=== PATIENT | male | born 1945 | race Caucasian/White ===

== ENCOUNTER 2021-10-02 09:16 | Day surgery (SDC) | payer MEDICARE ==
[2021-10-02] VITALS (12 sets, daily range): BP systolic 113–135; BP diastolic 39–87
[~2021-10-02] VITALS: Ht 182.9 cm; Wt 148.1 kg
[~2021-10-02 09:16] MED LIST: ASPI-1053 PO; CARV-50 PO; HYDR-4353 PO; IPRA4AER IH; LOSA50TA3 PO; METF-900 PO; MULT-1085 PO; SAXA1TBM PO; SIMV-42 PO; VITAMIN D PO
[2021-10-02] MEDS ORDERED: diphenhydrAMINE 25mg capsule PO PRN (10:25)
[2021-10-02] MEDS ORDERED: normal saline 1,000 ML IV SCH (10:25)
[2021-10-02] MEDS ORDERED: iohexol 350MG/ML 100ml bottle IV ONE (11:34)
[2021-10-02] MEDS ORDERED: heparin 1,000unit/ml 10ml vial 10 ML ONE (11:34)
[2021-10-02] MEDS ORDERED: midazolam 1 mg/ML 2ml injection ONE (11:34)
[2021-10-02] MEDS ORDERED: iohexol 350 MG/ML 50ML vial IV ONE (11:34)
[2021-10-02] MEDS ORDERED: LIDOcaine 1% (10mg/ml)w/preservative injection 20ml MDV ONE (11:34)
[2021-10-02] MEDS ORDERED: fentaNYL/PF 50MCG/1 ML 2ML syringe ONE (11:34)
[2021-10-02 11:44] LABS: BASOPHILS % (AUTO) 0.8 % (0-1); EOSINOPHILS # (AUTO) 0.2 X10'3 (0-0.9); EOSINOPHILS % (AUTO) 3.4 % (0-6); HEMATOCRIT 47.1 % (42.0-52.0); HEMOGLOBIN 15.4 g/dl (14.0-17.9); LYMPHOCYTES # (AUTO) 0.6 X10'3 (1.1-4.8); LYMPHOCYTES % (AUTO) 10.5 % (21-51); MEAN CORPUSCULAR HGB CONC 32.7 g/dL (33.0-36.5); MEAN CORPUSCULAR VOLUME 97.8 FL (78-98); MEAN PLATELET VOLUME 8.7 FL (7.4-10.4); MONOCYTES # (AUTO) 0.4 X10'3 (0-0.9); NEUTROPHILS # (AUTO) 4.4 X10'3 (1.8-7.7); NEUTROPHILS % (AUTO) 78.3 % (42-75); PLATELET COUNT 110 X10'3 (140-440); RED BLOOD COUNT 4.81 X10'6 (4.70-6.10); RED CELL DISTRIBUTION WIDTH 17.4 % (11.5-14.5); WHITE BLOOD COUNT 5.6 X10'3 (4.5-11.0)
[2021-10-02 11:55] LABS: ALBUMIN 3.4 G/DL (3.4-5.0); ANION GAP 7 (8-16); BLOOD UREA NITROGEN 22 MG/DL (7-18); BUN/CREATININE RATIO 22.9 (5.4-32.0); CALCIUM 8.8 MG/DL (8.5-10.1); CHLORIDE 107 MMOL/L (99-107); CREATININE 0.96 MG/DL (0.60-1.10); GLUCOSE 93 MG/DL (70-104); MAGNESIUM 1.8 MG/DL (1.5-2.4); SODIUM 144 MMOL/L (135-145); TOTAL CARBON DIOXIDE 30.2 MMOL/L (24-32); eGFR 77 ML/MIN
[2021-10-02] MEDS ORDERED: CARV25TA2 PO (12:09)
[2021-10-02] MEDS ORDERED: BUME2TAB7 PO (12:20)
[2021-10-02] MEDS ORDERED: Sotalol PO (12:20)
[2021-10-02] MEDS ORDERED: CBD Gummies PO (12:20)
[2021-10-02] MEDS ORDERED: APIX5TAB3 PO (12:20)
[2021-10-02] MEDS ORDERED: SIMV40TA PO (12:20)
[2021-10-02] MEDS ORDERED: CHOL100046 PO (12:20)
[2021-10-02] MEDS ORDERED: FLU VACC QS2021-22(6MOS UP)/PF 60 MCG/0.5 ML SYRINGE IM ONE (13:15)
[2021-10-02] MEDS ORDERED: HYDROcodone/acetaminophen 10/325mg tab PO PRN (15:25)
[2021-10-02] MEDS ORDERED: ondansetron/PF 4mg/2ml inj IV PRN (15:25)
[2021-10-02] MEDS ORDERED: normal saline 1000ml 1,000 ML IV SCH (15:25)
[2021-10-02] MEDS ORDERED: HYDROcodone/acetaminophen 5mg/325mg tablet PO PRN (15:25)
[2021-10-02] MEDS ORDERED: proCHLORperazine 10 MG/2 ml inj IV PRN (15:25)
== END 2021-10-02 18:43 | disposition home or self-care (01) ==
LOC: SSTAY O 09:16
PROVIDERS: ATTEND Internal Medicine Cardiovascular Disease
DX: I42.0 Dilated cardiomyopathy (principal); I25.10 Atherosclerotic heart disease of native coronary artery without angina pectoris; I47.2 Ventricular tachycardia; I27.20 Pulmonary hypertension, unspecified; I10 Essential (primary) hypertension; E78.5 Hyperlipidemia, unspecified; E11.9 Type 2 diabetes mellitus without complications; J43.9 Emphysema, unspecified; G47.30 Sleep apnea, unspecified; Z86.73 Personal history of transient ischemic attack (TIA), and cerebral infarction without residual deficits; Z79.899 Other long term (current) drug therapy; Z79.01 Long term (current) use of anticoagulants; Z79.82 Long term (current) use of aspirin; Z79.84 Long term (current) use of oral hypoglycemic drugs; Z87.442 Personal history of urinary calculi; Z98.890 Other specified postprocedural states; Z96.653 Presence of artificial knee joint, bilateral; Z89.022 Acquired absence of left finger(s); Z87.891 Personal history of nicotine dependence; Z72.89 Other problems related to lifestyle; Z88.1 Allergy status to other antibiotic agents; Z88.8 Allergy status to other drugs, medicaments and biological substances
CPT/HCPCS: 36415; 80048; 82948; 83735; 85025; 85610; 93005; 93458; 99152; 99153; C1760; C1769; C1894; J1644; J2250; J3010; J3490; Q9967; A6258

== ENCOUNTER 2021-11-24 13:40 | Emergency (ER) | payer MEDICARE ==
[~2021-11-24 13:40] MED LIST changes: +APIX5TAB3 PO; -ASPI-1053 PO; +BUME2TAB7 PO; -CARV-50 PO; +CARV25TA2 PO; +CBD Gummies PO; +CHOL100046 PO; -HYDR-4353 PO; -IPRA4AER IH; -LOSA50TA3 PO; -METF-900 PO; -SAXA1TBM PO; -SIMV-42 PO; +SIMV40TA PO; +Sotalol PO; -VITAMIN D PO
== END 2021-11-24 18:38 | disposition left against medical advice (07) ==
LOC: ER 13:42
DX: Z53.21 Procedure and treatment not carried out due to patient leaving prior to being seen by health care provider (principal)

== ENCOUNTER 2022-08-31 07:58 | Day surgery (SDC) | payer MEDICARE ==
[2022-08-31] VITALS (8 sets, daily range): BP systolic 99–113; BP diastolic 50–68
[~2022-08-31] VITALS: Ht 182.9 cm; Wt 109.5 kg
[2022-08-31 08:55] LABS: BASOPHILS # (AUTO) 0.1 X10'3 (0-0.2); BASOPHILS % (AUTO) 1.7 % (0-1); EOSINOPHILS # (AUTO) 0.4 X10'3 (0-0.9); EOSINOPHILS % (AUTO) 5.8 % (0-6); HEMATOCRIT 43.5 % (42.0-52.0); HEMOGLOBIN 14.5 g/dl (14.0-17.9); LYMPHOCYTES % (AUTO) 15.1 % (21-51); MEAN CORPUSCULAR HEMOGLOBIN 31.9 PG (27.0-31.0); MEAN CORPUSCULAR HGB CONC 33.4 g/dL (33.0-36.5); MEAN CORPUSCULAR VOLUME 95.5 FL (78-98); MEAN PLATELET VOLUME 8.2 FL (7.4-10.4); MONOCYTES # (AUTO) 0.5 X10'3 (0-0.9); MONOCYTES % (AUTO) 7.6 % (2-12); NEUTROPHILS # (AUTO) 4.8 X10'3 (1.8-7.7); NEUTROPHILS % (AUTO) 69.8 % (42-75); PLATELET COUNT 136 X10'3 (140-440); RED BLOOD COUNT 4.55 X10'6 (4.70-6.10); RED CELL DISTRIBUTION WIDTH 13.4 % (11.5-14.5); WHITE BLOOD COUNT 6.8 X10'3 (4.5-11.0)
[2022-08-31 08:59] LABS: ALBUMIN 3.5 G/DL (3.4-5.0); ANION GAP 6 (8-16); BLOOD UREA NITROGEN 19 MG/DL (7-18); BUN/CREATININE RATIO 23.8 (5.4-32.0); CALCIUM 9.2 MG/DL (8.5-10.1); CHLORIDE 103 MMOL/L (99-107); GLUCOSE 112 MG/DL (70-104); MAGNESIUM 1.9 MG/DL (1.5-2.4); POTASSIUM 4.3 MMOL/L (3.5-5.1); SODIUM 137 MMOL/L (135-145); TOTAL CARBON DIOXIDE 27.9 MMOL/L (24-32); eGFR > 90 ML/MIN
[2022-08-31] MEDS ORDERED: SACU1TAB (09:01)
[2022-08-31] MEDS ORDERED: FLO0.4C PO (09:01)
[2022-08-31] MEDS ORDERED: SOTA80TA46 PO (09:01)
[2022-08-31] MEDS ORDERED: DIGO125T PO (09:01)
[2022-08-31] MEDS ORDERED: MIDO5TAB4 PO (09:01)
[2022-08-31] MEDS ORDERED: SPIR25TA PO (09:01)
[2022-08-31] MEDS ORDERED: METF-900 PO (09:01)
[2022-08-31] MEDS ORDERED: BUME1TAB8 PO (09:02)
[2022-08-31] MEDS ORDERED: FINA5TAB11 PO (09:07)
[2022-08-31] MEDS ORDERED: ATOR40TA PO (09:07)
[2022-08-31] MEDS ORDERED: VANCOMYCIN 1,500MG in normal saline IV soln 300 ML IV ONE (09:50)
[2022-08-31] MEDS ORDERED: cefazolin/dext.iso 2gm/100ml 100 ML IV ONE (09:50)
[2022-08-31] MEDS ORDERED: normal saline 1000ml 1,000 ML IV SCH (10:15)
[2022-08-31] MEDS ORDERED: midazolam 1 mg/ML 2ml injection ONE ×3 (10:18→11:17)
[2022-08-31] MEDS ORDERED: vancomycin 1,000mg inj ONE (10:18)
[2022-08-31] MEDS ORDERED: fentaNYL/PF 50MCG/1 ML 2ML syringe ONE (10:18)
[2022-08-31] MEDS ORDERED: LIDOCAINE 2% w/EPI 1:100:000 30mL injection MDV**cath lab 1 only ONE (10:19)
[2022-08-31] MEDS ORDERED: normal saline 1,000 ML IV SCH (12:15)
[2022-08-31] MEDS ORDERED: HYDROcodone/acetaminophen 10/325mg tab PO PRN (12:15)
[2022-08-31] MEDS ORDERED: HYDROcodone/acetaminophen 5mg/325mg tablet PO PRN (12:15)
[2022-08-31] MEDS ORDERED: sod chloride 0.9% 10ml flush syringe IV SCH (16:00)
== END 2022-08-31 14:05 | disposition home or self-care (01) ==
LOC: SSTAY O 07:58
PROVIDERS: ATTEND Internal Medicine Cardiovascular Disease
DX: Z45.02 Encounter for adjustment and management of automatic implantable cardiac defibrillator (principal); I42.0 Dilated cardiomyopathy; Z79.899 Other long term (current) drug therapy
CPT/HCPCS: 33262; 36415; 71045; 80048; 83735; 85025; 85610; 93005; 99152; 99153; C1722; J0690; J2250; J3010; J3370; J3490; J7030; J7040; A4620

== ENCOUNTER 2023-12-16 09:28 | Outpatient (CLI) | payer OTHER ==
[~2023-12-16 09:28] MED LIST changes: +ATOR40TA PO; +BUME1TAB8 PO; -BUME2TAB7 PO; -CARV25TA2 PO; -CBD Gummies PO; +DIGO125T PO; +FINA5TAB11 PO; +FLO0.4C PO; +METF-900 PO; +MIDO5TAB4 PO; +SACU1TAB; -SIMV40TA PO; +SOTA80TA46 PO; +SPIR25TA PO; -Sotalol PO
== END 2023-12-16 23:59 | disposition home or self-care (01) ==
LOC: CARD DIAG 09:28
PROVIDERS: ATTEND Chiropractor
DX: I08.8 Other rheumatic multiple valve diseases (principal); I25.9 Chronic ischemic heart disease, unspecified
CPT/HCPCS: 93306